=== PATIENT | male | born 1950 | race Caucasian/White ===

== ENCOUNTER 2018-06-13 08:06 | Day surgery (SDC) | payer OTHER ==
[2018-06-13] MEDS ORDERED: LIDOCAINE 4% SOLUTION 50 ML BTL (09:47)
[2018-06-13] MEDS ORDERED: FENTAnyl 50 MCG/ML VIAL (10:23)
[2018-06-13] MEDS ORDERED: MIDAZOLAM 1 MG/ML 2 ML INJ ×2 (10:23)
== END 2018-06-13 12:09 | disposition home or self-care (01) ==
LOC: GIL 08:06
DX: R13.10 Dysphagia, unspecified (principal); K21.0 Gastro-esophageal reflux disease with esophagitis; K29.70 Gastritis, unspecified, without bleeding
CPT/HCPCS: 43239; 88305; 88312; 88313